=== PATIENT | male | born 1975 | race Caucasian/White ===

== ENCOUNTER 2024-02-20 21:10 | Emergency (ER) | payer SELFPAY ==
[2024-02-20 21:26] VITALS: BP 171/106; PULSE 77; RESP 17; TEMP 36.3; O2SAT 96; BMI 38.0
[2024-02-20 21:49] LABS: Basophils % 0.5 %; Eosinophils # 0.2 10^3/uL (0.0-0.8); Eosinophils % 3.1 %; Hematocrit 48.1 % (37-53); Lymphocytes # 2.5 10^3/uL (0.8-4.8); Lymphocytes % 43.1 %; Mean Corpuscular HGB Conc 34.1 g/dL (30-55); Mean Corpuscular Hemoglobin 29.6 pg (27-33); Mean Corpuscular Volume 86.8 fl (82-101); Mean Platelet Volume 9.4 fL (7.4-10.4); Monocytes # 0.6 10^3/uL (0.2-0.9); Nucleated Red Blood Cells % 0 %; Platelet Count 179 10^3/cmm (157-399); Red Blood Count 5.54 10^6/uL (3.85-5.65); Red Cell Distribution Width 14.2 % (12.1-15.1); White Blood Count 5.73 10^3/uL (3.29-11.43)
--- NOTE | 2024-02-20 22:08 | CTR_ITS ---
PROCEDURE INFORMATION: Exam: CT Abdomen And Pelvis Without Contrast Exam date and time: 02/20/2024 10:23 PM Age: 49 years old Clinical indication: Abdominal pain; Localized; Left lower quadrant (llq); Patient HX: C/O left flank/llq pain TECHNIQUE: Imaging protocol: Computed tomography of the abdomen and pelvis without contrast. Radiation optimization: All CT scans at this facility use at least one of these dose optimization techniques: automated exposure control; mA and/or kV adjustment per patient size (includes targeted exams where dose is matched to clinical indication); or iterative reconstruction. COMPARISON: No relevant prior studies available. RADIATION DOSE METRICS: Total DLP (mGy-cm): 1188.34 FINDINGS: Liver: Diffuse hepatic steatosis present. Gallbladder and biliary ducts: Normal. No calcified stones. No ductal dilation. Pancreas: Normal. No ductal dilation. Spleen: Normal. No splenomegaly. Adrenal glands: Normal. No mass. Kidneys and ureters: There is moderate left hydronephrosis and hydroureter secondary to a 5 mm stone and a 4 mm stone involving the left distal ureter at the level of the pelvic inlet. Bilateral punctate nonobstructing nephrolithiasis present. Stomach and bowel: Scattered colon diverticula. No inflammatory change identified involving the GI tract. No signs of bowel obstruction. Appendix: No evidence of appendicitis. Intraperitoneal space: Unremarkable. No free air. No significant fluid collection. Vasculature: Scattered calcific plaque involves the abdominal aorta. Lymph nodes: Unremarkable. No enlarged lymph nodes. Urinary bladder: Unremarkable as visualized. Reproductive: Unremarkable as visualized. Bones/joints: Mild degenerative changes involve the spine. Bilateral L5 pars defects present with grade 1 anterolisthesis. Soft tissues: Unremarkable. CT/CT kidney stone [id number] IMPRESSION: 1. Left obstructive uropathy secondary to a 5 mm and a 4 mm stone involving the left distal ureter. 2. Bilateral punctate nonobstructing nephrolithiasis. 3. Diffuse hepatic steatosis.
[2024-02-20 22:09] LABS: Albumin Level 4.1 g/dL (3.5-5.2); Alkaline Phosphatase 91 U/L (40-130); Blood Urea Nitrogen 24 mg/dL (6-20); Carbon Dioxide 27 mmol/L (22-29); Chloride 100 mmol/L (98-107); Creatinine Clr Calc Pharmacy 82.0368; Globulin 2.6 g/dL (1.3-4.6); Glomerular Filtration Rate 49.7 mL/min (90-130); Glucose 109 mg/dL (65-115); Lipase 40 U/L (13-60); Osmolality Calculated 291 mOsm/kg (285-295); Sodium 138 mmol/L (136-145); Total Bilirubin 0.2 mg/dL (0.15-1.2); Total Protein 6.7 g/dL (6.6-8.7)
[2024-02-20 22:10] LABS: Anion Gap 15.3 (5-19); Potassium 4.3 mmol/L (3.5-5.1)
[2024-02-20 22:22] LABS: Alanine Aminotransferase 56 U/L (0-41); Aspartate Amino Transferase 5 U/L (0-40)
[2024-02-20 22:32] LABS: Bilirubin Urine Negative (Negative); Blood Urine 2+ (Negative); Glucose Urine UA Negative (Normal); Ketones Urine Negative (Negative); Leukocyte Esterase Urine Negative (Negative); Nitrate Urine Negative (Negative); Protein Urine Negative (Negative); Specific Gravity, Urine 1.019 (1.005-1.030); Urine Appearance Clear (CLEAR); Urine Color Yellow (Yellow)
[2024-02-20 22:37] LABS: Add Urine Microscopic? YES; Bacteria Urine None Seen /hpf; RBC Urine >100 /hpf (0-2); Squamous Epithelial Cell Urine 0-5 /hpf (0-5); WBC Urine 0-5 /hpf (0-5)
[2024-02-20] MEDS: ketorolac 30 mg/mL INJ IVP (22:37)
[2024-02-20] MEDS: ondansetron 2 mg/ML SDV 2 mL 4 MG IVP (22:38)
[2024-02-20] MEDS: morphine 4 mg/mL SDV 1 mL IVP (22:39)
[2024-02-20 22:40] VITALS: BP 176/113; PULSE 82; RESP 20; O2SAT 96
[2024-02-20 22:42] LABS: Add Urine Culture? Yes
--- NOTE | 2024-02-20 23:23 | ED_ITS ---
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 He states he said left flank and left lower quadrant pain for 4 to 5 days. He has been dealing with the pain at home by drinking an herbal tea. He states the pain became too much this evening. He is nauseated. He has not thrown up. No fever. No blood in the stool. He has had some intermittently bloody looking urine. Related Data Previous Rx's Medication Instructions Recorded ketorolac 10 mg tablet 10 mg PO TID PRN pain #12 tabs 02/20/24 ondansetron 4 mg disintegrating 4 mg PO Q6H PRN nausea and 02/20/24 tablet vomiting #14 tabs oxycodone-acetaminophen 7.5 mg-325 1 tab PO Q6H PRN pain #10 tabs 02/20/24 mg tablet (Percocet) tamsulosin 0.4 mg capsule (Flomax) 0.4 mg PO DAILY #7 caps 02/20/24 Allergies Allergy/AdvReac Type Severity Reaction Status Date / Time adhesive tape Allergy ALGY-Rash Verified 02/20/24 21:29 Physical Exam 2 Const: COMMON NORMALS: no acute distress GENERAL APPEARANCE: cooperative; not ill appearing and not frail appearing HENMT: COMMON NORMALS: normocephalic, atraumatic and Normal external nose present HEAD & SCALP: normocephalic and atraumatic FACE & SINUS: normal facial exam and face symmetric NOSE: Normal external nose present Eye: COMMON NORMALS: Equal, round and reactive pupils present and EOMs intact bilaterally PUPIL: Yes Equal, round and reactive pupils present Neck/C-Spine: GENERAL: Yes trachea midline Chest: CHEST: Yes Symmetrical chest wall rise Resp: COMMON NORMALS: normal respiratory effort, No retractions, No use of accessory muscles and clear to auscultation bilaterally AUSCULTATION: clear to auscultation bilaterally Cardio: COMMON NORMALS: regular rate and regular rhythm RATE: regular rate RHYTHM: regular rhythm GI: COMMON NORMALS: Normal to inspection, nondistended, normoactive bowel sounds present PALPATION: Yes Tenderness to palpation present (GI) Details: LLQ : BLADDER/KIDNEY EXAM: Yes CVA tenderness on the left Back/Pelvis: GENERAL BACK: Yes CVA tenderness Extremity: COMMON NORMALS: no pedal edema Neuro: CECILLE COMA SCALE: document GCS findings Cecille coma scale eye opening: Spontaneous Cecille coma scale verbal response: Orientated Cecille coma scale motor response: Obey commands Cecille coma scale total score: 15 S ENSORY EXAM: Yes extremities (intact) Psych: COMMON NORMALS: speech normal SPEECH: Yes normal speech Skin: COMMON NORMALS: no rashes or lesions noted GENERAL SKIN EXAM: no rashes or lesions noted Course 2 Vital Signs: Vital signs: Vital Signs Temperature 97.3 F L 02/20/24 21:26 Pulse Rate 75 02/20/24 23:59 Respiratory Rate 18 02/20/24 23:59 Blood Pressure 153/89 02/20/24 23:59 Pulse Oximetry 96 02/20/24 23:59 Oxygen Delivery Me thod Room Air 02/20/24 22:40 MDM - Abdominal Pain Medical Decision Making Creatinine is 1.5. No priors for baseline. CT shows a left obstructive uropathy as 2 stones are in his distal left ureter at 5 mm and 4 mm. No evidence of infection. Pain is greatly relieved after medication. He will be allowed discharge to follow-up as an outpatient, he knows to return for worsening symptoms. 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 Lab Data 02/20/24 21:40 02/20/24 21:40 Labs/Radiology: Radiology Impressions Abdomen/Pelvis CT 02/20/24 22:08 IMPRESSION: 1. Left obstructive uropathy secondary to a 5 mm and a 4 mm stone involving the left distal ureter. 2. Bilateral punctate nonobstructing nephrolithiasis. 3. Diffuse hepatic steatosis. Laboratory Results WBC 5.73 10^3/uL (3.29-11.43) 02/20/24 21:40 RBC 5.54 10^6/uL (3.85-5.65) 02/20/24 21:40 Hgb 16.40 g/dL (11.27-16.99) 02/20/24 21:40 Hct 48.1 % (37-53) 02/20/24 21:40 MCV 86.8 fl (82-101) 02/20/24 21:40 MCH 29.6 pg (27-33) 02/20/24 21:40 MCHC 34.1 g/dL (30-55) 02/20/24 21:40 RDW 14.2 % (12.1-15.1) 02/20/24 21:40 Plt Count 179 10^3/cmm (157-399) 02/20/24 21:40 MPV 9.4 fL (7.4-10.4) 02/20/24 21:40 Neut % (Auto) 42.0 % 02/20/24 21:40 Lymph % (Auto) 43.1 % 02/20/24 21:40 [place] % (Auto) 11.0 % 02/20/24 21:40 Eos % (Auto) 3.1 % 02/20/24 21:40 Baso % (Auto) 0.5 % 02/20/24 21:40 Neut # (Auto) 2.40 10^3/uL (1.8-7.7) 02/20/24 21:40 Lymph # (Auto) 2.5 10^3/uL (0.8-4.8) 02/20/24 21:40 [place] # (Auto) 0.6 10^3/uL (0.2-0.9) 02/20/24 21:40 Eos # (Auto) 0.2 10^3/uL (0.0-0.8) 02/20/24 21:40 Baso # (Auto) 0.0 10^3/uL (0.0-0.1) 02/20/24 21:40 Nucleated RBC % (auto) 0 % 02/20/24 21:40 Nucleated RBCs # 0.0 /100WBC 02/20/24 21:40 Sodium 138 mmol/L (136-145) 02/20/24 21:40 Potassium 4.3 mmol/L (3.5-5.1) 02/20/24 21:40 Chloride 100 mmol/L (98-107) 02/20/24 21:40 Carbon Dioxide 27 mmol/L (22-29) 02/20/24 21:40 Anion Gap 15.3 (5-19) 02/20/24 21:40 BUN 24 mg/dL (6-20) H 02/20/24 21:40 Creatinine 1.5 mg/dL (0.7-1.2) H 02/20/24 21:40 GFR Calculation 49.7 mL/min (90-130) L 02/20/24 21:40 Glucose 109 mg/dL (65-115) 02/20/24 21:40 Calculated Osmolality 291 mOsm/kg (285-295) 02/20/24 21:40 Calcium 10.0 mg/dL (8.5-10.5) 02/20/24 21:40 Total Bilirubin 0.2 mg/dL (0.15-1.2) 02/20/24 21:40 AST 5 U/L (0-40) 02/20/24 21:40 ALT 56 U/L (0-41) H 02/20/24 21:40 Alkaline Phosphatase 91 U/L (40-130) 02/20/24 21:40 C-Reactive Protein 4.0 mg/L (0.0-4.9) 02/20/24 21:40 Total Protein 6.7 g/dL (6.6-8.7) 02/20/24 21:40 Albumin 4.1 g/dL (3.5-5.2) 02/20/24 21:40 Globulin 2.6 g/dL (1.3-4.6) 02/20/24 21:40 Lipase 40 U/L (13-60) 02/20/24 21:40 Urine Color Yellow (Yellow) 02/20/24 20:23 Urine Appearance Clear (CLEAR) 02/20/24 20: Urine pH 6.0 (5-7) 02/20/24 20: Ur Specific Corn 1.019 (1.005-1.030) 02/20/24: Urine Protein Negative (Negative) 02/20/24 20: Urine Glucose (UA) Negative (Normal) 02/20/24 20: Urine Ketones Negative (Negative) 02/20/24 20: Urine Blood 2+ (Negative) A 02/20/24: Urine Nitrate Negative (Negative) 02/20/24: Urine Bilirubin Negative (Negative) 02/20/24 20: Urine Urobilinogen 1.0 mg/dL (Negative) 02/20/24: Ur Leukocyte Esterase Negative (Negative) 02/20/24: Urine RBC >100 /hpf (0-2) H 01/11/25 20:23 Urine WBC 0-5 /hpf (0-5) 02/20/24 20:23 Ur Squamous Epith Cells 0-5 /hpf (0-5) 02/20/24 20:23 Amorphous Sediment Not Reportable 02/20/24 20:23 Urine Bacteria None seen /hpf (NONE) 02/20/24 20:23 Hyaline Casts 0.40 /lpf 02/20/24 20:23 All radiology interpretation(s) finalized by discharge Discharge Plan Discharge Patient Disposition: Home Clinical Impression: Ureterolithiasis Condition: Stable Prescriptions: New ketorolac 10 mg tablet 10 mg PO TID PRN (Reason: pain) Qty: 12 0RF oxycodone-acetaminophen [Percocet] 7.5-325 mg tablet 1 tab PO Q6H PRN (Reason: pain) Qty: 10 0RF ondansetron 4 mg tablet,disintegrating 4 mg PO Q6H PRN (Reason: nausea and vomiting) Qty: 14 0RF tamsulosin [Flomax] 0.4 mg capsule 0.4 mg PO DAILY Qty: 7 0RF Discharge Orders: Discharge ED (Routine); Ordered 02/20/24 Ordered By: Rasheed Abdi Patient Instructions: Kidney Stones (ED), Opioid Safety, Pain Management Coding Level of Care Code ED Oyster Opener for Alexandrea Salinas
[2024-02-20 23:59] VITALS: BP 153/89; PULSE 75; RESP 18; O2SAT 96
== END 2024-02-20 23:56 | disposition home or self-care (01) ==
PROVIDERS: Emergency Medicine; Emergency Provider Emergency Medicine
DX: N20.1 Calculus of ureter (principal)
CPT/HCPCS: 36415; 74176; 80053; 81001; 83690; 85025; 86140; 87086; 96374; 96375; 99285; J1885; J2270; J2405